=== PATIENT | male | born 1995 | race Caucasian/White ===

== ENCOUNTER 2017-12-19 11:49 | Emergency (ER) | payer OTHER ==
[2017-12-19] MEDS ORDERED: LIDOCAINE 1% 2 ML VIAL SUBQ ONE (13:50)
[2017-12-19] MEDS ORDERED: cefTRIAXone 1 GM VIAL IM STA (13:50)
--- NOTE | 2017-12-19 13:56 | ED Physician Documentation ---
PD HPI UPPER EXT INJURY - Stated complaint Stated Complaint: L FOREARM LAC - Chief complaint Chief Complaint: General - History obtained from History obtained from: Patient - History of Present Illness Location: Left, Elbow Type of injury: Fall Where injury occurred: Home Timing - onset: How many weeks ago (1) Timing - duration: Weeks (1) Timing - details: Abrupt onset, Still present Improved by: Rest, Immobilization Worsened by: Moving, Palpating Associated symptoms: Swelling, Discolored Contributing factors: No: Anticoagulated Similar symptoms before: Has not had sx before Recently seen: Not recently seen - Additonal information Additional information: 22 y/o male fell playing basketball and injured his left elbow with an abrasion. This seemed to heal until last night when he began to get some burning sensation in the skin and noticed redness surrounding the wound. There is no drainage from the wound. He has not had fever. Review of Systems Constitutional: denies: Fever Eyes: denies: Decreased vision Ears: denies: Ear pain Nose: denies: Congestion Throat: denies: Sore throat Respiratory: denies: Cough GI: denies: Vomiting : denies: Dysuria Skin: reports: Other (discoloration of the skin around the elbow) Musculoskeletal: reports: Extremity pain, Joint swelling Neurologic: denies: Generalized weakness, Focal weakness, Numbness PD PAST MEDICAL HISTORY - Present Medications Home Medications: Ambulatory Orders Medication Instructions Recorded Confirmed Cephalexin [Keflex] 500 mg PO QID #28 capsule 12/19/17 Sulfamethoxazole/Trimethoprim 1 each PO BID #14 tablet 12/19/17 [Sulfamethoxazole-Tmp Ds Tablet] - Allergies Allergies/Adverse Reactions: Allergies Allergy/AdvReac Type Severity Reaction Status Date / Time No Known Drug Allergies Allergy Verified 12/19/17 12:01 - Social History Does the pt smoke?: No Smoking Status: Never smoker Does the pt drink ETOH?: Yes PD ED PE NORMAL - Vitals Vital signs reviewed: Yes (hypertensive ) - General General: Alert and oriented X 3, No acute distress, Well developed/nourished - HEENT HEENT: Atraumatic, PERRL, EOMI - Neck Neck: Supple, no meningeal sign - Respiratory Respiratory: No respiratory distress - Derm Derm: Normal color, Warm and dry, No rash - Extremities Extremities: No deformity, Other (There is a healing abrasion to the dorsal elbow with surrounding erythema and no drainage or fluctuance. There is erythema that extends nearly circumfirential and is outlined with a surgical marker. ) - Neuro Neuro: Alert and oriented X 3, Normal speech Eye Opening: Spontaneous Motor: Obeys Commands Verbal: Oriented GCS Score: 15 - Psych Psych: Normal mood, Normal affect Results - Vitals Vitals: Vital Signs - 24 hr 12/19/17 11:58 Temperature 37.2 C Heart Rate 63 Respiratory 15 Rate Blood Pressure 136/94 H O2 Saturation 99 Oxygen O2 Source Room air PD MEDICAL DECISION MAKING - ED course Complexity details: considered differential, d/w patient ED course: 22-year-old male with an abrasion to his left elbow has developed a surrounding cellulitis. The cellulitis is rapidly blanching and there is concern for strep. The patient is afebrile there is no drainage from the wound itself no fluctuance to the wound he is given an injection of Rocephin and we will place him on 2 antibiotic therapy. Departure - Departure Disposition: 01 Home, Self Care Clinical Impression: Cellulitis Qualifiers: Site of cellulitis: extremity Site of cellulitis of extremity: upper extremity Laterality: left Qualified Code(s): L03.114 - Cellulitis of left upper limb Condition: Stable Instructions: ED Infec Skin Cellulitis Follow-Up: PRISCA WRIGHT [Primary Care Provider] - Prescriptions: Cephalexin [Keflex] 500 mg PO QID #28 capsule Sulfamethoxazole/Trimethoprim [Sulfamethoxazole-Tmp Ds Tablet] 1 each PO BID # 14 tablet
[2017-12-19 14:21] VITALS: BP 127/81
== END 2017-12-19 14:26 | disposition home or self-care (01) ==
LOC: ED 11:49
DX: S50.812A Abrasion of left forearm, initial encounter (principal); L03.114 Cellulitis of left upper limb; W18.39XA Other fall on same level, initial encounter; Y93.67 Activity, basketball; Y92.009 Unspecified place in unspecified non-institutional (private) residence as the place of occurrence of the external cause
CPT/HCPCS: 96372; 99283